=== PATIENT | female | born 1995 | race Caucasian/White ===

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

== ENCOUNTER → 2017-07-29 | Outpatient (CLI) | payer BC ==
--- NOTE | 2017-07-29 13:19 | CPEEG ---
[f rep st] ELECTROENCEPHALOGRAM ELECTROENCEPHALOGRAM. DATE OF STUDY: 07/29/2017 DATE OF INTERPRETATION: July 29, 2017. INTERPRETATION: Normal EEG during wakefulness and sleep. There were no potentially epileptogenic ab normalities present on the recording. REPORT: This EEG contains 10 Hz alpha to the posterior head regions. There was no abnormal activati on at rest, during photic stimulation or hyperventilation. The patient became drowsy and fell asleep during the study. There was no abnormal activation during drowsiness, sleep, or during times of sabiha usal. /[id number]/MODL
== END ==
LOC: FCPNEURO 09:41
PROVIDERS: ATTEND Psychiatry & Neurology Neurology
DX: H53.9 Unspecified visual disturbance (principal)

== ENCOUNTER 2017-11-03 14:13 | Emergency (ER) | payer OTHER ==
--- NOTE | 2017-11-03 14:18 | EDPHY ---
H & P Time Seen by Provider: 11/03/17 14:15 Constitutional: Initial Vital Signs Temperature (C) 36.7 C 11/03/17 14:13 Heart Rate 60 11/03/17 14:13 Respiratory Rate 19 11/03/17 14:13 Blood Pressure 109/82 H 11/03/17 14:13 O2 Sat (%) 99 11/03/17 14:13 O2 Delivery Mode Room Air Allergies/Adverse Reactions: acetaminophen [From Vicodin] Allergy (Verified 10/15/16 22:19) codeine Allergy (Verified 10/15/16 22:19) hydrocodone bitartrate [From Vicodin] Allergy (Verified 10/15/16 22:19) Home Medications: Medication Instructions Recorded Depakote 11/03/17 Medical Decision Making ED Course/Re-evaluation: CHIEF COMPLAINT: Syncope HISTORY OF PRESENT ILLNESS: The patient is a 21 y/o female arriving via EMS for evaluation of a syncopal episode. She has had prior syncopal episodes in the past with negative work ups. Today she was walking through a lab on a tour and felt lightheaded, then lost consciousness. She bumped the left side of her head on something during the fall, but denies headache, neck pain, weakness, paresthesias, recent illness, or other recent trauma. She does note she's had some recent rectal bleeding and has an endoscopy scheduled for next week. No current complaints. REVIEW OF SYSTEMS: A 10 point review of systems was performed and is negative with the exception of the elements mentioned in the history of present illness. PHYSICAL EXAM: HR, BP, O2 Sat, RR. Temp noted General Appearance: Alert, well hydrated, appropriate, and non-toxic appearing. Head: Atraumatic without scalp tenderness or obvious injury Eyes: Pupils equal, round, reactive to light and accommodation, EOMI, no trauma , no injection. Nose: Atraumatic, no rhinorrhea, clear. Throat: Mucus membranes moist. Neck: Supple, nontender, no lymphadenopathy. Respiratory: No retractions, no distress, no wheezes, and no accessory muscle use. Lungs are clear to auscultation bilaterally. Cardiovascular: Regular rate and rhythm, no murmurs, rubs, or gallops. Good capillary refill all extremities. Gastrointestinal: Abdomen is soft, nontender, non-distended, no masses, no rebound, no guarding, no peritoneal signs. Musculoskeletal: Normal active ROM of all extremities, atraumatic. No midline C /T/L tenderness. Neurological: Alert, appropriate, and interactive. The patient has non-focal cranial nerves, motor, sensory, and cerebellar exam. Skin: No rashes, good turgor, no nodules on palpation. Past medical history: Prior syncopes Past surgical history: Denies Family history: Noncontributory Social history: Friend at bedside. [employer] student. DIAGNOSTICS/PROCEDURES/CRITICAL CARE TIME: The 12 lead EKG was interpreted by myself. Sinus mechanism rate 64. See hard copy and/or "tracemaster" electronic copy for interpretation. DIFFERENTIAL DIAGNOSIS: The differential diagnosis for the patient's syncope included but was not limited to vasovagal syncope, arrhythmia, dehydration, cardiogenic causes, neurogenic causes, and blood loss. MEDICAL DECISION MAKING: This is a healthy 21 y/o female who presents for evaluation after a syncopal episode this afternoon. Her exam is completely unremarkable. No trauma. She is neurovascularly intact. Presentation consistent with vasovagal syncope and is similar to prior episodes for her. Plan for EKG and ISTAT to ensure H&H is normal given report of recent rectal bleeding, which she is being treated for as an outpatient already. EKG and H&H are normal. Patient will be discharged with standard syncope care and follow up instructions. Return precautions discussed. She is comfortable with plan for discharge. - Data Points Laboratory Results: 11/03/17 14:42 POC Hgb 15.0 gm/dL gm/dL (12.6-16.3) POC Hct 44 % % (38-47) POC Sodium 142 mEq/L mEq/L (135-145) POC Potassium 3.5 mEq/L mEq/L (3.3-5.0) POC Chloride 103 mEq/L mEq/L (97-110) POC BUN 14 mg/dL mg/dL (7-23) POC Creatinine 0.8 mg/dL mg/dL (0.6-1.0) POC Glucose 104 mg/dL H mg/dL (70-100) Point of Care Test Results: 11/03/17 14:42 POC Sodium 142 POC Potassium 3.5 POC Chloride 103 POC BUN 14 POC Creatinine 0.8 POC Glucose 104 H Departure - Departure Disposition: Home, Routine, Self-Care Clinical Impression: Syncope Qualifiers: Syncope type: vasovagal syncope Qualified Code(s): R55 - Syncope and collapse Condition: Good Instructions: Syncope (ED) Additional Instructions: Follow up with your primary care provider for unimproved symptoms over the next few days. Return to the ED for worsening of condition. Referrals: [facility],. [Clinic] - As per Instructions Report Scribed for: Martinez Oakes Report Scribed by: Alyce Henderson Date of Report: 11/03/17 Time of Report: 14:46
[2017-11-03 14:34] VITALS: TEMP 98.1; O2SAT 99
--- NOTE | 2017-11-03 14:48 | CPEKG ---
Heart Rate: 64 RR Interval: 938 P-R Interval: 164 QRSD Interval: 66 QT Interval: 384 QTC Interval: 396 P [place]: 52 QRS [place]: 40 T Wave [place]: 45 EKG Severity - NORMAL ECG - EKG Impression: SINUS RHYTHM Electronically Signed By: Martinez Oakes 03-Nov-2017 15:08:46
[2017-11-03 15:00] VITALS: BP 108/69; PULSE 70; RESP 15
== END 2017-11-03 15:00 | disposition home or self-care (01) ==
LOC: EDUNIT#
DX: R55 Syncope and collapse (principal)
CPT/HCPCS: 82947-QW